=== PATIENT | male | born 2000 | race Caucasian/White ===

== ENCOUNTER 2024-05-25 13:02 | Emergency (ER) | payer BC, SELFPAY ==
[2024-05-25 13:05] VITALS: BP 124/74
--- NOTE | 2024-05-25 13:32 | ED.GENMED ---
History of Present Illness
General
Chief Complaint: Dental Problem
Source: patient and family
Time Seen by Provider: 05/25/24 13:21
History of Present Illness
History of Present Illness:
23yoM with no significant past medical history presenting with his mother for evaluation of multiple issues. Patient returned home from college yesterday for the holiday. He goes to school in [place]. When he returned home, mother noticed that he
lost a significant amount of weight and 'did not look well.' Mother believes he is malnourished. Parents also noticed that his gums appeared swollen and were worried about an infection. Patient reports gum pain that started about 4 days ago. He
admits to not flossing regularly and has been drinking a lot of coffee. Mother believes the primary issue is his depression. Patient admits to feeling depressed and he has been dealing with this for several years. He is not on any medication and
denies any suicidal thoughts.
Phy Exam
General Physical Exam
General Presentation: no apparent distress
General age: appears stated age
General Skin: warm and dry
General Habitus: normal
General Mental: alert
ENT Exam
ENT Exam: normocephalic and other (Poor dentition throughout with edematous gums consistent with gingivitis. No periapical abscess noted. No facial swelling or elevation of floor of mouth. Normal phonation. Tolerating oral secretions without
difficulty. )
Cardiovascular Exam
Cardiovascular Exam: regular rate/rhythm
Pulmonary Exam
Pulmonary Exam: no respiratory distress
Neurological Exam
Neurological Exam: alert
[place] Coma Scale
Eye Opening: Spontaneous
Verbal Response: Oriented
Motor Response: Obeys Commands
GCS Total Score: 15
Skin Exam
Skin Exam: normal color and warm/dry
Psychiatric Exam
Psychiatric Exam: depressed
Course
Orders/Labs/Results
Orders:
Orders
05/25/24 13:31
Crisis Consult Urgent
Reason for Consult: eval
0.9% Sodium Chloride 1000 ml [Nss] 1,000 ml IV BOLUS
05/25/24 13:37
Complete Blood Count/With Diff Urgent
Comprehensive Metabolic Panel Urgent
TSH Reflex To Free T4 Urgent
05/25/24 15:16
Ketorolac [Toradol] 15 mg IV NOW STA
05/25/24 15:26
Penicillin V Potassium [Pen Vk] 500 mg PO NOW STA
Abnormal Lab Results
05/25/24
13:37
Absolute Neuts (auto) 7.3 H 10^3/uL
(1.4-6.5)
Neutrophils % 77.6 H %
(42.2-75.2)
Lymphocytes % 13.0 L %
(20.5-51.1)
05/25/24 13:37
05/25/24 13:37
Vital Signs
Initial and Last Documented VS:
Initial Vital Signs
Temp Pulse Resp BP Pulse Ox
97.9 F 80 16 124/74 100
05/25/24 13:05 05/25/24 13:05 05/25/24 13:05 05/25/24 13:05 05/25/24 13:05
Last Documented Vital Signs
Temp Pulse Resp BP Pulse Ox
97.9 F 80 16 130/93 99
05/25/24 13:05 05/25/24 13:05 05/25/24 13:05 05/25/24 15:00 05/25/24 15:45
MDM/Problems Addressed
Differential Diagnosis Includes:
23yoM here for swollen painful gums. He is also feeling depressed and losing weight due to decreased PO intake. VSS. He is non-toxic appearing. There is edema along the gumline consistent with gingivitis. No dental abscess, facial swelling, or signs
of Sami's on exam. Differential diagnosis includes but is not limited to: depression, dehydration, thyroid dysfunction
Initial ED plan: Check CBC, CMP, and TSH. IV fluid bolus. Will consult crisis.
*Critical Care Note
Total Time (30-74mins, 75-104mins- exclusive of procedures): Not Applicable
Update Note
Update Note:
Labs overall unremarkable including normal blood counts, electrolytes, glucose, renal function, TSH. Patient evaluated by crisis and outpatient resources provided. Patient not interested in inpatient treatment at this time and there are no grounds
for 302. Suspect oral pain is due to poor dental hygiene. Will start on penicillin to cover for overlying infection. He was advised to f/u with PCP, his dentist, and the outpatient mental health resources provided. He was discharged in stable
condition with his parents.
ED Attending Note
-
Portions of this chart may have been created with voice recognition software.� Occasional wrong word or��sound alike� substitutions may have occurred due to the inherent limitations of voice recognition software.
Discharge Plan
Departure
Patient Disposition: Home (Routine Discharge)
Date of Disposition: 05/25/24
Time of Disposition: 15:27
Patient with high blood pressure during this ER visit?: No
Discharge Problem:
Gingivitis, Depression
Instructions: Depression in adults, Gingivitis (DC)
Prescriptions:
New
penicillin V potassium 500 mg tablet
500 mg PO QID 7 Days Qty: 27 0RF
No Action
multivitamin [Daily Vitamin] 1 EACH tablet
1 tab PO DAILY
amoxicillin-pot clavulanate 200 MG/5 ML suspension for reconstitution
800 mg PO TID Qty: 600 0RF
ondansetron 4 MG tablet,disintegrating
4 mg PO Q8HPRN PRN (Reason: Nausea/Vomiting) Qty: 10 0RF
Referrals:
Allison Devine MD [Family Provider] -
Activity Restrictions/Additional Instructions:
Take antibiotics as prescribed. Take Tylenol 650mg and ibuprofen 600mg every 6 hours as needed for pain.
Please follow-up with your family doctor, your dentist, and the outpatient mental health resources provided.
Return to the ER with any worsening symptoms.
Interventions
Interventions:
*Risk Screen - Suicide Last Done: 05/25/24 14:00
*General Assessment Last Done: 05/25/24 14:00
*Neglect/Abuse Screening Last Done: 05/25/24 14:00
*ED COVID-19 Vaccine History Last Done: 05/25/24 14:00
*Nursing Disposition Last Done: 05/25/24 16:04
Discharge Date and Time
Discharge Date/Time: 05/25/24 16:04
Print Language: OCCITAN
[2024-05-25] MEDS: NSS 1000 IV (13:45)
[2024-05-25 14:15] LABS: % Basophils 0.4 % (0-2); % Eosinophils 2.1 % (0-6); % Immature Granulocytes 0.4 % (0-0.5); % Monocytes 6.5 % (1.7-9.3); % Neutrophils 77.6 % (42.2-75.2); Absolute Eosinophils 0.2 10^3/uL (0-0.7); Absolute Lymphocytes 1.2 10^3/uL (1.2-3.4); Absolute Monocytes 0.6 10^3/uL (0.1-0.6); Absolute Neutrophils 7.3 10^3/uL (1.4-6.5); Hematocrit 42.5 % (39.0-52.0); Hemoglobin 15.7 g/dL (13.0-18.0); Mean Corp Hgb Conc. 36.9 g/dL (33.0-37.0); Mean Corpuscular Hgb 30.3 pg (27.0-31.0); Mean Corpuscular Volume 81.9 fL (80.0-94.0); Mean Platelet Volume 9.7 fL (7.4-10.4); Nucleated Red Blood Cells % 0 % (-); Platelet Count 257 10^3/uL (130-400); Red Blood Cell Count 5.19 10^6/uL (4.70-6.10); Red Cell Dist. Width 11.5 % (11.5-14.5); White Blood Cell Count 9.4 10^3/uL (4.8-10.8)
[2024-05-25 14:28] LABS: ALT (SGPT) 16 U/L (0-50); AST (SGOT) 22 U/L (17-59); Albumin 4.8 g/dl (3.5-5.0); Alkaline Phosphatase 58 U/L (38-126); Blood Urea Nitrogen 11 mg/dl (9-20); Calcium 9.8 mg/dl (8.4-10.2); Carbon Dioxide 25 mmol/L (22-30); Chloride 104 mmol/L (98-107); Glucose 79 mg/dl (70-99); Potassium 4.5 mmol/L (3.5-5.1); Sodium 142 mmol/L (135-145); Total Bilirubin 0.6 mg/dl (0.2-1.3); Total Protein 6.9 g/dl (6.3-8.2); eGFR > 60.00
[2024-05-25 14:34] VITALS: BP 141/100
[2024-05-25 14:58] LABS: TSH Reflex To Free T4 0.58 uIU/ml (0.47-4.68)
[2024-05-25 15:00] VITALS: BP 130/93
[2024-05-25] MEDS: TORADOL 15 MG IV (15:24)
[2024-05-25] MEDS: PEN VK 500 MG PO (15:46)
== END 2024-05-25 16:04 | disposition home or self-care (01) ==
LOC: EMR 13:02
PROVIDERS: Physician Assistant; EMERGENCY PHYSICIAN Emergency Medicine; FAMILY PHYSICIAN Pediatrics
DX: K05.10 Chronic gingivitis, plaque induced (principal); F32.A Depression, unspecified
CPT/HCPCS: 99283; 96374; 96361; 80053; 84443; 85025